=== PATIENT | male | born 1980 | race Caucasian/White ===

== ENCOUNTER 2016-05-11 19:28 | Emergency (ER) | payer SELFPAY ==
[~2016-05-11] VITALS: Ht 170.2 cm; Wt 93.0 kg
[2016-05-11 20:05] VITALS: BP 133/79
--- NOTE | 2016-05-11 22:51 | NUR ---
TO ER BED 8
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
--- NOTE | 2016-05-11 23:00 | NUR ---
Patient being evaluated by DR. MONTANEZ at bedside.
[2016-05-11] MEDS ORDERED: IBUPROFEN 800 MG TAB PO ONE (23:20)
[2016-05-11 23:30] VITALS: BP 130/75
--- NOTE | 2016-05-11 23:30 | NUR ---
Patient discharged with v/s stable. Written and verbal after care instructions given and explained. Patient alert, oriented and verbalized understanding of instructions. Ambulatory with steady gait. All questions addressed prior to discharge. ID band removed. Patient advised to follow up with PMD. Rx of NAPROSYN 500 MG given. Patient educated on indication of medication including possible reaction and side effects. Opportunity to ask questions provided and answered.
== END 2016-05-11 23:30 | disposition home or self-care (01) ==
LOC: MED 19:28
DX: S50.02XA Contusion of left elbow, initial encounter (principal); W22.8XXA Striking against or struck by other objects, initial encounter; Y93.89 Activity, other specified; Y92.89 Other specified places as the place of occurrence of the external cause; Y99.8 Other external cause status